=== PATIENT | female | born 1995 | race Caucasian/White ===

== ENCOUNTER 2017-09-29 21:24 | Emergency (ER) | payer MEDICAID ==
[2017-09-29 22:17] LABS: BASOPHIL % 0.9 % (0-2); PLATELET COUNT 206 x10^3mcL (130-400); RED CELL DISTRIBUTION WIDTH 13.4 % (11.5-14.5); microscopic required? YES; urine erythrocyte TRACE (NEGATIVE)
[2017-09-29 22:30] LABS: CALCIUM 8.8 mg/dL (8.5-10.1); CARBON DIOXIDE 24.4 mmol/L (21-32); CHLORIDE SERUM 106 mmol/L (98-107); CREATININE SERUM 0.8 mg/dL (0.6-1.0); GFR1 > 60 mL/min; GLUCOSE SERUM 96 mg/dL (74-106); POTASSIUM SERUM 3.4 mmol/L (3.5-5.1); SODIUM SERUM 139 mmol/L (136-145)
[2017-09-29 22:35] LABS: ALBUMIN 4.1 g/dL (3.4-5.0); ALKALINE PHOSPHATASE 65 U/L (46-116); ALT/SGPT 13 U/L (14-59); AMYLASE 68 U/L (25-115); AST/SGOT 15 U/L (15-37); BILIRUBIN TOTAL 0.34 mg/dL (0.20-1.00); LIPASE 226 IU/L (73-393)
[2017-09-29 23:03] VITALS: BP 133/71
== END 2017-09-29 23:04 | disposition home or self-care (01) ==
LOC: ED 21:24
PROVIDERS: Emergency Medicine
DX: R10.84 Generalized abdominal pain (principal); R11.2 Nausea with vomiting, unspecified; K92.1 Melena; Z90.89 Acquired absence of other organs
CPT/HCPCS: 36415; J0500; Q0162

== ENCOUNTER 2018-01-30 13:55 | Emergency (ER) | payer MEDICAID ==
[~2018-01-30] VITALS: Ht 160 cm; Wt 61.2 kg
[2018-01-30 14:14] VITALS: Ht 160 cm; Wt 61.2 kg
[2018-01-30 16:43] VITALS: BP 132/87
== END 2018-01-30 16:43 | disposition home or self-care (01) ==
LOC: ED 13:55
DX: N39.0 Urinary tract infection, site not specified (principal)
CPT/HCPCS: J0696

== ENCOUNTER 2018-03-03 16:26 | Emergency (ER) | payer MEDICAID ==
[~2018-03-03] VITALS: Ht 160 cm; Wt 58.2 kg
[2018-03-03 16:30] VITALS: BP 130/83; Ht 160 cm; Wt 58.2 kg
== END 2018-03-03 18:10 | disposition home or self-care (01) ==
LOC: ED 16:26
DX: J06.9 Acute upper respiratory infection, unspecified (principal); J02.9 Acute pharyngitis, unspecified; M54.2 Cervicalgia
CPT/HCPCS: J1885

== ENCOUNTER 2018-03-06 18:03 | Emergency (ER) | payer MEDICAID ==
[~2018-03-06] VITALS: Ht 160 cm; Wt 58.0 kg
[2018-03-06 18:10] VITALS: Ht 160 cm; Wt 58.0 kg
[2018-03-06 19:36] LABS: BASOPHIL % 0.4 % (0-2); PLATELET COUNT 293 x10^3mcL (130-400); RED CELL DISTRIBUTION WIDTH 13.4 % (11.5-14.5)
[2018-03-06 19:47] LABS: CALCIUM 8.9 mg/dL (8.5-10.1); CARBON DIOXIDE 26.7 mmol/L (21-32); CHLORIDE SERUM 105 mmol/L (98-107); CREATININE SERUM 0.5 mg/dL (0.6-1.0); GFR1 > 60 mL/min; GLUCOSE SERUM 91 mg/dL (74-106); POTASSIUM SERUM 3.8 mmol/L (3.5-5.1); SODIUM SERUM 139 mmol/L (136-145)
[2018-03-06 19:55] LABS: ALBUMIN 3.6 g/dL (3.4-5.0); ALKALINE PHOSPHATASE 74 U/L (46-116); ALT/SGPT 13 U/L (14-59); BILIRUBIN TOTAL 0.3 mg/dL (0.20-1.00); LIPASE 150 IU/L (73-393)
[2018-03-06 19:57] LABS: TOTAL PROTEIN, SERUM 8.5 g/dL (6.4-8.2)
[2018-03-06 20:03] LABS: AST/SGOT 11 U/L (15-37)
[2018-03-06 23:37] VITALS: BP 100/52
== END 2018-03-06 23:38 | disposition home or self-care (01) ==
LOC: ED 18:03
PROVIDERS: Emergency Medicine
DX: R10.9 Unspecified abdominal pain (principal); R19.7 Diarrhea, unspecified; R51 Headache; Z90.89 Acquired absence of other organs
CPT/HCPCS: 36415; J1885; Q0162

== ENCOUNTER 2020-08-22 18:32 | Emergency (ER) | payer OTHER, MEDICAID ==
[~2020-08-22] VITALS: Ht 160 cm; Wt 59.4 kg
[2020-08-22 18:45] VITALS: Ht 160 cm; Wt 59.4 kg
[2020-08-22 19:35] VITALS: BP 114/68
== END 2020-08-22 19:35 | disposition home or self-care (01) ==
LOC: ED 18:32
DX: S81.052A Open bite, left knee, initial encounter (principal); L08.9 Local infection of the skin and subcutaneous tissue, unspecified; Z90.89 Acquired absence of other organs; W57.XXXA Bitten or stung by nonvenomous insect and other nonvenomous arthropods, initial encounter; Y93.89 Activity, other specified; Y92.89 Other specified places as the place of occurrence of the external cause; Y99.8 Other external cause status